=== PATIENT | male | born 1970 | race Caucasian/White ===

== ENCOUNTER 2016-05-06 14:00 | Emergency (ER) | payer MEDICAID ==
[2016-05-06] MEDS ORDERED: DILAUDID 1 MG/ML AMP ONE ×2 (15:22→16:13)
[2016-05-06] MEDS ORDERED: LIDOCAINE 1% MDV 20 ML ONE (16:36)
== END 2016-05-06 16:59 | disposition home or self-care (01) ==
LOC: ER 14:00
DX: M25.462 Effusion, left knee (principal); Z98.890 Other specified postprocedural states
CPT/HCPCS: 96372